=== PATIENT | female | born 1945 | race Caucasian/White ===

== ENCOUNTER 2022-11-30 16:35 | Observation (INO) | payer MEDICARE, SELFPAY ==
[2022-11-30] VITALS (20 sets, daily range): BP systolic 136–169; BP diastolic 57–76; PULSE 67–93; RESP 13–26; TEMP 36.7–37; O2SAT 97–100; BMI 21.6; BMI 22.9
--- NOTE | ~2022-11-30 | CT_ITS ---
EXAMINATION: CT brain wo con DATE: 11/30/2022 17:16 INDICATION: Syncope. TECHNIQUE: Computed tomography (CT) of the head was performed without intravenous contrast. The dose- length product was 605.33 mGy-cm. Automated exposure control and iterative reconstruction technique w ere employed. COMPARISON: CT dated 05/26/2018 FINDINGS: Chronic right lacunar infarction. Generalized atrophy. There is intracranial atherosclerosi s. There are scattered mild periventricular and subcortical white matter changes, most likely related to small vessel ischemic disease (microangiopathy). No ventriculomegaly or midline shift. Basilar ci sterns are patent. Paranasal sinuses and mastoids are pneumatized. No depressed skull fractures. No a cute intracranial hemorrhage, infarction, mass or mass effect. IMPRESSION: 1. No acute intracranial abnormality. No significant interval change. 2: Chronic right lacunar infarction. 3: Chronic age-related findings. Reviewed, dictated and finalized at location A.
--- NOTE | ~2022-11-30 | MR_ITS ---
EXAMINATION: MR brain/brain stem wo con DATE: 12/01/2022 14:33 INDICATION: Syncope. History of stroke. TECHNIQUE: Magnetic resonance imaging (MRI) of the brain and brainstem was performed without intraven ous contrast. Sequences included sagittal and axial T1-weighted SE, axial diffusion-weighted FS SE, a xial T2*-weighted GRE, axial T2-weighted FLAIR Propeller, and axial T2-weighted Propeller. Apparent d iffusion coefficient (ADC) maps were created. COMPARISON: CT dated 11/30/2022. FINDINGS: Mild generalized brain parenchymal volume loss. There are scattered mild periventricular an d subcortical white matter changes, most likely related to small vessel ischemic disease (microangiop athy). No acute infarction, mass or mass effect. No ventriculomegaly or midline shift. Structures of the posterior fossa including 7/8th cranial nerve complexes are normal. There is a small chronic righ t lacunar infarction. Paranasal sinuses are unremarkable. Orbits are symmetric without disconjugate g aze. Structures of the posterior fossa including 7/8th cranial nerve complexes are normal. Flow voids in the major intracerebral arteries are within normal limits. Midline sagittal images demonstrate a normal corpus callosum and craniovertebral junction. IMPRESSION: 1. No acute intracranial abnormality. 2: Chronic right lacunar infarction. 3: Chronic age-related findings. Reviewed, dictated and finalized at location A.
--- NOTE | ~2022-11-30 | XR_ITS ---
EXAMINATION: XR chest 1V portable 11/30/2022 17:08 INDICATION: Syncope PROCEDURE: AP portable chest COMPARISON: No prior studies for comparison. FINDINGS: The lungs are clear. The cardiomediastinal silhouette is within normal limits. There are no pleural effusions. There is no pneumothorax suspected. The lungs are hyperinflated which is cons istent with, but not diagnostic of chronic obstructive pulmonary disease. IMPRESSION: 1: NO ACUTE CARDIOPULMONARY DISEASE. Reviewed, dictated and finalized at location A.
--- NOTE | ~2022-11-30 | US_ITS ---
EXAMINATION: US carotid duplex BI DATE: 12/01/2022 08:02 INDICATION: Syncope TECHNIQUE: Grayscale, color Doppler, and pulsed Doppler images of the cervical carotid arteries were obtained. The degree of vessel stenosis is placed in one of the following categories: normal, <50%, 5 0-69%, >=70% but less than near-occlusion, near-occlusion, or total occlusion. Note that percent sten osis relative to normal distal artery lumen diameter is indirectly measured from velocity measurement s as described by John, et al. Radiology 2003; 229:340-346. COMPARISON: None. FINDINGS: RIGHT: The right common carotid artery (CCA) peak systolic velocity (PSV) is 24.1 cm/s. The right internal c arotid artery (ICA) PSV is 81.4 cm/s. The right ICA end-diastolic velocity (EDV) is 17.6 cm/s. [facility] ICA/CCA PSV ratio is 0.9. Grayscale and color Doppler images yield an estimate of 0% diameter red uction from plaque in the ICA. The external carotid artery (ECA) PSV is 98.0 cm/s. There is antegrade flow in the right vertebral artery. LEFT: The left CCA PSV is 89.2 cm/s. The left ICA PSV is 101.0 cm/s. The left ICA EDV is 21.2 cm/s. [facility] t ICA/CCA PSV ratio is 1.1. Grayscale and color Doppler images yield an estimate of 0% diameter reduc tion from plaque in the ICA. The ECA PSV is 67.3 cm/s. There is antegrade flow in the left vertebral artery. IMPRESSION: 1. No stenosis in the right internal carotid artery. 2. No stenosis in the left internal carotid artery. Reviewed, dictated and finalized at Location A. Reviewed, dictated and finalized at location A.
--- NOTE | 2022-11-30 16:47 | ECG_ITS ---
Measurements Intervals [place] Rate: 69 P: 66 AL: 153 QRS: -17 QRSD: 93 T: 38 QT: 413 QTc: 445 Interpretive Statements SINUS RHYTHM WITH SINUS ARRHYTHMIA NONSPECIFIC ST ABNORMALITY ABNORMAL ECG NO PREVIOUS ECG AVAILABLE FOR COMPARISON Electronically Signed On 12-01-2022 9:09:46 CDT by Fco Walker M.D.
--- NOTE | 2022-11-30 16:58 | ED.SYNCOPE ---
HPI - Syncope General Chief Complaint: Syncope Stated Complaint: several syncopal events Source: patient, EMS and RN notes reviewed Mode of arrival: EMS Limitations: no limitations History of Present Illness HPI narrative: This is a 77 year old female who presents for evaluation of multiple syncopal episodes. PAtient states she was sitting when developed nausea, urge to have bowel movement, felt cold and dizzy. She states she woke up the scare look on her family's face since she had passed out. EMS was called and EMS reports they witnessed 2 syncopal episodes. They report patient was sitting on stretcher when patient became unresponsive for 15 seconds, body tensed up and they witnessed her heart rate drop down to 40. This happened twice. Patient denies chest pain, shortness of breath, heart palpitations, tongue bitting. She states she has had 5 to 6 episodes of syncopal episodes in her lifetime. Her last episode was 7 years ago but she did not seek medical attention at that time. Patient did not want to come to hospital today. She has not seem doctor in 5 years. She drinks 2-3 beers a day. She denies history of alcohol withdrawal Related Data Allergies Allergy/AdvReac Type Severity Reaction Status Date / Time tetracycline Allergy Unknown Unknown Verified 11/30/22 17:39 No Known Allergies Allergy Unverified 05/26/18 12:19 Review of Systems Constitutional: Constitutional: Denies weakness Cardiovascular: Cardiovascular: Denies syncope, Denies rapid heart rate, Denies irregular heart rhythm, Denies leg edema and Denies dyspnea Respiratory: Respiratory: Denies chest congestion, Denies hemoptysis, Denies excessive phlegm production and Denies dyspnea Gastrointestinal: Gastrointestinal: Denies abdominal pain, Denies hematochezia, Denies diarrhea, Reports nausea and Reports vomiting Genitourinary: Genitourinary: Denies hematuria and Denies dysuria Musculoskeletal: Musculoskeletal: Denies joint swelling, Denies loss of height and Denies muscle weakness Neurologic: Reports syncope, Denies focal weakness and Denies weakness PMFSH Past Medical History Medical History Syncope Tobacco use Surgical History Surgical History History of section Family History Family History Sibling Family history of heart disease in male family member before age 55 Social History Social History (Updated 11/30/22 @ 20:26 by Madisyn Euceda PA-C) Social History: Surrogate medical decision maker: Wang Yu, spouse. Code status: Full code. Smoking packs per day: 0.5 Smoking cigarettes per day: 10.0 Smoking status: Current every day smoker Alcohol intake: current Alcohol use details: 3 beers per day. Additional living arrangements comments: The patient lives with her in [place]. Additional occupation/education comments: Retired. Exam Narrative: GENERAL: Well-appearing, well-nourished, and in no acute distress. HEAD: Normocephalic, atraumatic EYES: PERRLA and EOMI, conjunctiva clear without discharge THROAT:Mucous membranes moist, Oropharynx normal without erythema, exudate, peritonsillar swelling or fluctuance NECK: Supple, without lymphadenopathy or mass RESPIRATORY: No respiratory distress, Airway patent, Respirations non-labored, Clear to auscultation without rales, rhonchi or wheeze HEART: Regular rate and rhythm. No murmur heard. Normal peripheral pulses. ABDOMEN: Soft, nontender, nondistended, normal active bowel sounds. No masses. No rebound or guarding, No organomegaly. EXTREMITIES: No edema, normal strength with full range of motion. SKIN: Warm, dry, normal color without rash NEURO: Alert and oriented x3. CN 2-12 grossly intact. No focal deficits. PSYCH: Normal mood and affect. Course Reevaluation(s) Reevaluation #1: I discussed with patient evaluation. I
[2022-11-30] MEDS: SODIUM CHLORIDE 0.9% IV 1,000 ML 999 ML IV CONT (17:40)
[2022-11-30 17:54] LABS: Basophils Percent Auto 0.2 % (0.2-1.2); Eosinophils Percent Auto 0.1 % (0-4.4); Hematocrit 38.2 % (37.0-47.0); Hemoglobin 12.9 g/dL (12.0-15.0); Immature Granulocyte Absolute 0.04 K/mm3 (0.00-0.031); Immature Granulocyte Percent A 0.4 % (0-0.5); Lymphocytes Absolute Auto 1.19 K/mm3 (0.9-3.2); Lymphocytes Percent Auto 12.6 % (18.3-44.2); Mean Corpuscular HGB Conc 33.8 g/dl (32-36); Mean Corpuscular Hemoglobin 33.6 pg (26-34); Mean Corpuscular Volume 99.5 fl (80-100); Mean Platelet Volume 11.2 fl (7.4-10.4); Monocytes Absolute Auto 0.7 K/mm3 (0.1-0.6); Monocytes Percent Auto 7.1 % (2.6-8.5); Neutrophils Absolute Auto 7.5 K/mm3 (1.3-6.7); Neutrophils Percent Auto 79.6 % (45.5-73.1); Platelet Count Result 217 k/mm3 (150-375); Red Blood Count 3.84 M/mm3 (4.2-5.4); Red Cell Distribution Width 12.4 % (11.5-14.5); White Blood Count 9.4 K/mm3 (4.5-10.0)
[2022-11-30 18:11] LABS: Alanine Aminotransferase 23 U/L (6-35); Alkaline Phosphatase 65 U/L (38-126); Anion Gap 6 mmol/L (8-16); Aspartate Amino Transferase 35 U/L (14-36); Bilirubin,Total 0.6 mg/dL (0.2-1.3); Blood Urea Nitrogen 10 mg/dL (7-17); Carbon Dioxide 26 mmol/L (22-30); Chloride 103 mmol/L (98-107); Estimated CRCL calculation 50 ml/min; Estimated Glomerular Filt Rate > 60; Glucose 142 mg/dL (65-110); Lactic Acid Reflex 2.6 mmol/L (0.7-2.0); Magnesium 1.8 mg/dL (1.6-2.3); Prothrombin Time 14.2 Seconds (11.1-14.7); Sodium 135 mmol/L (137-145)
[2022-11-30 18:12] LABS: Ethanol < 10 mg/dL (<10)
[2022-11-30 18:19] LABS: NT Pro B Type Natriuretic Pept 373 pg/mL (19.9-100); Troponin I < 0.012 ng/mL (0.000-0.034)
[2022-11-30 18:22] LABS: D Dimer 0.47 ug/mL (<0.48)
--- NOTE | 2022-11-30 19:01 | PM.IMHP ---
H&P: HPI History of Present Illness Date/Time: 11/30/22 19:05 Chief Complaint: Syncope. Narrative: This is a 77-year-old female smoker without significant medical history who presented to the emergency department via EMS for evaluation after syncopal episode. The patient provides the following history and her provides additional information with the patient's permission. She felt fine when she got up this morning. Not long prior to arrival she was simply sitting down when she felt the urge to use the restroom. She reports having a normal bowel movement and she returned to the couch. Greater than 15 minutes later she began feeling weak, lightheaded, and dizzy with associated chills and nausea. reports that her head fell forward and she was unresponsive for approximately 10 seconds. He called 911 and when she came to she told him that she did not want to come to the hospital as she has had similar episodes in the past though not for 5 years or more. EMS was already in route to her home and she had 2 similar episodes witnessed by EMS. They did not notice any seizure-like activity but they did report that she tensed up, became bradycardic into the 40s, and she was unresponsive for upwards of 15 seconds. Vital signs have been stable since arrival to the ED. She has not had any recurrent symptoms. Brain CT showed no acute findings but did show a chronic right-sided lacunar infarct, unknown to the patient. EKG showed a sinus rhythm with normal UT interval, ventricular rate of 69, and no acute ST segment depressions or elevations. Chest x-ray showed no acute cardiopulmonary disease. At the time my evaluation she feels fine and has no complaints. She denies fever, recent cold and flu symptoms, chest and pleuritic pain, palpitations, shortness of breath, and vomiting. Review of Systems Review of Systems: Twelve systems were reviewed and are negative except for as per HPI. [facility] Past Medical History Medical History Syncope Tobacco use Surgical History Surgical History History of section Family History Family History Sibling Family history of heart disease in male family member before age 55 Social History Social History (Updated 11/30/22 @ 20:26 by Madisyn Euceda PA-C) Social History: Surrogate medical decision maker: Wang Yu, spouse. Code status: Full code. Smoking packs per day: 0.5 Smoking cigarettes per day: 10.0 Smoking status: Current every day smoker Alcohol intake: current Alcohol use details: 3 beers per day. Additional living arrangements comments: The patient lives with her in [place]. Additional occupation/education comments: Retired. Meds Home Medications and Allergies Allergies Allergy/AdvReac Type Severity Reaction Status Date / Time tetracycline Allergy Unknown Unknown Verified 11/30/22 17:39 No Known Allergies Allergy Unverified 05/26/18 12:19 Vital Signs Vital Signs - 24 hr 11/30/22 16:37 11/30/22 16:48 11/30/22 18:10 Temperature 98.0 F Pulse Rate 73 75 71 Respiratory Rate 19 Blood Pressure 155/60 H 149/65 H Pulse Oximetry 99 11/30/22 18:14 11/30/22 18:15 Temperature Pulse Rate 77 82 Respiratory Rate Blood Pressure 163/67 H 169/70 H Pulse Oximetry Exam Narrative: General: A well-developed female sitting up in bed in no acute distress. Weight: 60.8 kg. BMI: 21.6. HEENT: Wearing corrective lenses. PERRL, EOMI. Sclera anicteric. Oral mucosa moist. Neck: Supple. No JVD or bruits. Respiratory: Lungs are clear to auscultation bilaterally. Cardiovascular: Regular rate and rhythm with S1-S2. Gastrointestinal: Abdomen is soft, nontender, and nondistended with positive bowel sounds. Skin: Warm and dry. No rash or lesions on limited exam. Extremities: No cyanosis, clubbing, or edema. Radial pulses
[2022-11-30 20:33] LABS: Glucose Point of Care 116 mg/dl (65-105)
[2022-11-30] MEDS: SODIUM CHLORIDE 0.9% IV 1,000 ML 125 ML IV CONT (20:50)
[2022-11-30 20:52] LABS: Reflex Lactic Acid Yes or No Add Lactic
[2022-11-30 21:54] LABS: Lactic Acid 2.3 mmol/L (0.7-2.0)
[2022-11-30 23:41] LABS: Appearance Urine Clear (Clear); Bacteria Urine 4+ /hpf; Bilirubin Urine Negative (Negative); Blood Urine Negative (Negative); Color Urine Yellow (Yellow); Glucose Urine UA Negative (Negative); Ketones Urine Negative (Negative); Leukocyte Esterase Ur Trace LEU/UL (Negative); Nitrate Urine Positive (Negative); Non Pathogenic Casts 0-2; Protein Urine Negative (Negative); RBC Urine 0-2 /hpf (0-2); Specific Grav Ur 1.009 (1.001-1.035); Squamous Epithelial Cell Urine None seen /hpf (Few); Urobilinogen Urine 0.2 mg/dL (<2.0)
[2022-11-30 23:44] LABS: Add Urine Microscopic? YES
[2022-11-30 23:54] LABS: Amphetamine Screen Urine Negative (Negative); Barbiturate Screen Urine Negative (Negative); Benzodiazepines Screen Urine Negative (Negative); Cannabinoid Screen Urine Positive (Negative); Cocaine Screen Urine Negative (Negative); Methadone Screen Urine Negative (Negative); Opiate Screen Urine Negative (Negative); Phencyclidine Screen Urine Negative (Negative)
[2022-12-01] VITALS (15 sets, daily range): BP systolic 144–172; BP diastolic 54–77; PULSE 56–81; RESP 16–20; TEMP 36.6–36.9; O2SAT 94–99
[2022-12-01 05:13] LABS: Anion Gap 2 mmol/L (8-16); Blood Urea Nitrogen 6 mg/dL (7-17); Calcium 8.2 mg/dL (8.4-10.2); Carbon Dioxide 28 mmol/L (22-30); Chloride 106 mmol/L (98-107); Cholesterol 172 mg/dL (0-200); Estimated CRCL calculation 64 ml/min; Estimated Glomerular Filt Rate > 60; Glucose 90 mg/dL (65-110); HDL Direct 59 mg/dL; Magnesium 1.7 mg/dL (1.6-2.3); Potassium 4.1 mmol/L (3.4-5.0); Sodium 136 mmol/L (137-145); Triglycerides 131 mg/dL (<150)
[2022-12-01 05:30] LABS: LDL Cholesterol Direct 92 mg/dL
[2022-12-01 05:50] LABS: Hemoglobin A1C 4.8 % (<5.7)
--- NOTE | 2022-12-01 11:23 | PM.IMPN ---
Progress Note: A&P Assessment and Plan (1) Syncope: Code(s): R55 - Syncope and collapse Status: Acute Assessment and Plan: Patient presented to the emergency department via EMS from home for evaluation of syncope. Possible vasovagal syncope however she is adamant that she did not lose consciousness or have any prodromal symptoms for 15 minutes or more after having an unremarkable bowel movement. Transthoracic echo with bubble study pending US carotids completed and pending CT head with chronic right lacunar infarct; no acute process noted. EKG sinus arrhythmia with nonspecific ST changes. Telemetry sinus arrhythmia without ectopy Check MRI brain given evidence of old stroke on CT. Monitor orthostatic vitals. No h/o seizures. (2) Elevated blood pressure reading: Code(s): R03.0 - Elevated blood-pressure reading, without diagnosis of hypertension Status: Acute Assessment and Plan: Patient likely has untreated hypertension given evidence of prior stroke, smoking habits, and age; however, she does not go to the doctor regularly or check her BP at home. When discussed she states that her blood pressure is probably high because she's in the hospital and wants to go home. Recommended starting antihypertensives and patient did not want to do this at this time. She was counseled on risks for AL and further strokes. PRN hydralazine IV for SBP>185 or DBP>110 (3) Hyperglycemia: Code(s): R73.9 - Hyperglycemia, unspecified Status: Inactive Assessment and Plan: Blood sugar 142 at 1737. This is unlikely a fasting level and not elevated for random glucose level to suggest diabetes. A1c 4.8%. No further evaluation or intervention needed. (4) Old lacunar stroke without late effect: Code(s): Z86.73 - Personal history of transient ischemic attack (TIA), and cerebral infarction without residual deficits Status: Chronic Assessment and Plan: CT head shows chronic right lacunar infarct. Patient denies known history of stroke. No focal deficits. patient with syncope on admission. Check MRI brain to rule out acute stroke. BP elevated 144/58 to 172/77. She is not agreeable to taking antihypertensive at this time despite long discussion of risks for uncontrolled hypertension. She was counseled to find PCP and check BP at home. She is agreeable to starting baby aspirin 81 mg daily. LDL 92, HDL 59, triglycerides 131. Give prior stroke recommended LDL<70, however, patient is not agreeable to starting statin medication at this time. Saw Handle Assembler to decrease alcohol intake to no more than 7 drinks/week and quit smoking. (5) Tobacco use: Code(s): Z72.0 - Tobacco use Status: Chronic Assessment and Plan: As above. Plan CODE STATUS: FULL CODE Discharge disposition: from home. Discharge when imaging completed and hemodynamically stable. Time Spent With Patient Time with patient: 25 - 35 minutes Subjective Date/time seen: 12/01/22 11:23 Interval history: Patient denies GRISSOM, vision changes, slurred speech, word finding, disorientation, dizziness, gait changes, facial droop or paresthesia, unilateral extremity weakness or paresthesia, chest pain, SOB, fever, chills, urinary frequency/urgency/hesitancy or hematuria. She was incontinent of stool during her syncopal episode. No tongue injury. Review of Systems Review of Systems: All systems reviewed & are unremarkable except as noted in HPI and below Exam Narrative: General: No acute distress. Older adult female lying in bed. Non-toxic appearing. Neuro/Psych: Awake, alert and oriented x4 with clear, non-pressured speech. Neutral mood and affect. Cranial nerves 2-12 intact. No focal sensory or motor deficits. No facial asymmetry or tongue deviation. No pronator drift or drift BLE. Intact finger to nose and heel to singh. Skin: Skin fair, warm, dry and intact without rashes or l
[2022-12-01] MEDS: LORazepam INJ (*CRX) 2 MG/ML VIAL 1 MG IV PUSH (13:47)
[2022-12-01 20:26] LABS: Glucose Point of Care 106 mg/dl (65-105)
[2022-12-02] VITALS (7 sets, daily range): BP systolic 146–160; BP diastolic 57–82; PULSE 53–67; RESP 16; TEMP 36.4; O2SAT 94
--- NOTE | 2022-12-02 | ECHO_ITS ---
Patient Info Name: Linette Yu Age: 77 years : 1945 Gender: Female Ht: 66 in Wt: 134 lbs BSA: 1.68 m2 HR: 64 bpm BP: 148 / 69 mmHg Heart Rhythm: Sinus Rhythm Technical Quality: Fair Exam Date: 12/02/2022 12:41 PM Exam Location: [facility] Patient Status: Outpatient Admit Date: 11/30/2022 Staff Ordering Physician: Madisyn Euceda PA-C Sand Digger: Leigh Ann Sands RDCS Attending Provider: Miguel Blank MD Referring Physician: Ok HAYS; Exam Type: CA echo doppler w bubble study Study Info Indications - old cva on brain ct R55 - Syncope and collapse Complete two-dimensional, color flow and Doppler transthoracic echocardiogram is performed with agitated saline. Contrast/Agitated Saline Contrast/Ag. Saline: Agitated Saline Amount: 20.00 ml Administered By: Margo Olguin RDCS Existing IV Access: Yes IV Access Condition: patent with no signs of infiltration Summary 1. Normal left ventricular size, systolic function with grade 1 diastolic noncompliance. 2. No valvular abnormalities. 3. Agitated saline contrast injection demonstrates no intracardiac shunt. Left Ventricle Left ventricular chamber dimension is normal. Left ventricular systolic function is normal, estimated at 65-70%. The left ventricular diastolic function is grade I diastolic dysfunction. Right Ventricle Right ventricular chamber dimension is normal. Left Atria Left atrial chamber dimension is normal. Right Atria Right atrial chamber dimension is normal. Atrial Septum Intact interatrial septum visualized by agitated saline imaging. Aortic Valve The aortic valve is normal. Pulmonic Valve The pulmonic valve is normal. Mitral Valve The mitral valve has normal leaflets. Tricuspid Valve The tricuspid valve leaflets are normal. Pericardium/Pleural The pericardium appears normal. Aorta The aortic root size at the sinus of Valsalva is normal. Left Ventricular Outflow Tract Name Value Normal LVOT 2D LVOT Diameter 2.0 cm LVOT Doppler LVOT Peak Gradient 4 mmHg LVOT Mean Gradient 2 mmHg LVOT VTI 20 cm LVOT VTI/AV VTI Ratio 0.7 LVOT Stroke Volume 66 ml LVOT CO 4.5 l/min LVOT CI 2.6 l/min/m2 Pulmonic Valve Name Value Normal RVOT Doppler RVOT Peak Gradient 1 mmHg PV Doppler PV Peak Gradient 2 mmHg Mitral Valve Name Value Normal MV Doppler
[2022-12-02 06:10] LABS: Basophils Percent Auto 0.3 % (0.2-1.2); Eosinophils Absolute Auto 0.1 K/mm3 (0-0.3); Eosinophils Percent Auto 1.8 % (0-4.4); Hematocrit 35.9 % (37.0-47.0); Hemoglobin 12.2 g/dL (12.0-15.0); Immature Granulocyte Absolute 0.02 K/mm3 (0.00-0.031); Immature Granulocyte Percent A 0.3 % (0-0.5); Lymphocytes Absolute Auto 2.39 K/mm3 (0.9-3.2); Lymphocytes Percent Auto 39.1 % (18.3-44.2); Mean Corpuscular Hemoglobin 33.4 pg (26-34); Mean Corpuscular Volume 98.4 fl (80-100); Mean Platelet Volume 11.2 fl (7.4-10.4); Monocytes Absolute Auto 0.6 K/mm3 (0.1-0.6); Monocytes Percent Auto 9.8 % (2.6-8.5); Neutrophils Percent Auto 48.7 % (45.5-73.1); Platelet Count Result 183 k/mm3 (150-375); Red Blood Count 3.65 M/mm3 (4.2-5.4); Red Cell Distribution Width 11.9 % (11.5-14.5); White Blood Count 6.1 K/mm3 (4.5-10.0)
[2022-12-02] MEDS: ASPIRIN 81 MG ENTERIC TABLET PO (08:50)
--- NOTE | 2022-12-02 13:10 | PCCCNOTE ---
On 12/02/22, the student, [Jade Arroyo ], provided care and [facility] on this patient. I have reviewed the student's documentation and agree with the findings.
--- NOTE | 2022-12-02 16:39 | PM.DS ---
DS: Admitting Diagnosis Discharge Date 12/02/2022 Admitting Diagnosis Syncope Elevated blood pressure Old lacunar stroke Tobacco dependence DS: Discharge Diagnosis Discharge Diagnosis (1) Syncope: Qualifiers: Syncope type: unspecified Qualified Code(s): R55 - Syncope and collapse Code(s): R55 - Syncope and collapse Status: Acute Assessment and Plan: Patient presented to the emergency department via EMS from home for evaluation of syncope. Possible vasovagal syncope however she is adamant that she did not lose consciousness or have any prodromal symptoms for 15 minutes or more after having an unremarkable bowel movement. Transthoracic echo with bubble study showed grade 1 diastolic dysfunction, but normal LV systolic function, EF 65-70%, no significant valvular disease or PFO. US carotids without abnormality. CT head with chronic right lacunar infarct; no acute process noted. EKG sinus arrhythmia with nonspecific ST changes. Telemetry sinus arrhythmia without ectopy Check MRI brain without acute stroke. orthostatic vitals negative. Patient afebrile without s/s acute infection. UA suggests infection but patient is without systemic or urinary symptoms. No h/o seizures. (2) Hypertension: Code(s): I10 - Essential (primary) hypertension Status: Acute Assessment and Plan: Patient likely has untreated hypertension given evidence of prior stroke, smoking habits, and age; however, she does not go to the doctor regularly or check her BP at home. When discussed she states that her blood pressure is probably high because she's in the hospital and wants to go home. Recommended starting antihypertensives and patient did not want to do this at this time. She was counseled on risks for HI and further strokes. PRN hydralazine IV for SBP>185 or DBP>110 available. Patient had persistently elevated BP and given CT evidence of prior stroke, she was agreeable to starting PO lisinopril 10 mg daily. She was counseled to check her BP at home and record for follow up. (3) Hyperglycemia: Code(s): R73.9 - Hyperglycemia, unspecified Status: Inactive Assessment and Plan: Blood sugar 142 at 1737. This is unlikely a fasting level and not elevated for random glucose level to suggest diabetes. A1c 4.8%. No further evaluation or intervention needed. (4) Old lacunar stroke without late effect: Code(s): Z86.73 - Personal history of transient ischemic attack (TIA), and cerebral infarction without residual deficits Status: Chronic Assessment and Plan: CT head shows chronic right lacunar infarct. Patient denies known history of stroke. No focal deficits. patient with syncope on admission. Check MRI brain to rule out acute stroke. BP elevated 144/58 to 172/77. She is not agreeable to taking antihypertensive at this time despite long discussion of risks for uncontrolled hypertension. She was counseled to find PCP and check BP at home. Patient started on lisinopril 10 mg 12/02/22 She is agreeable to starting baby aspirin 81 mg daily. LDL 92, HDL 59, triglycerides 131. Give prior stroke recommended LDL<70, however, patient is not agreeable to starting statin medication at this time. Gynecologist to decrease alcohol intake to no more than 7 drinks/week and quit smoking. (5) Tobacco use: Code(s): Z72.0 - Tobacco use Status: Chronic Assessment and Plan: Counseled to quit smoking. (6) Asymptomatic bacteriuria: Code(s): R82.71 - Bacteriuria Status: Acute Assessment and Plan: UA positive nitrates, trace leukocytes, 6-10 WBC, 4+ bacteria. No dysuria, urinary urgency, hesitancy, frequency, hematuria or flank pain. No leukocytosis or fever. Antibiotics were not started and she was counseled on s/s infection. DS: Summary Hospital Course Reason for hospitalization: syncope Hospital Course: [place]
== END 2022-12-02 17:15 | disposition home or self-care (01) ==
LOC: ANHED 16:58 → ANH2MED 21:06
PROVIDERS: Nurse Practitioner Family; Physician Assistant; Admitting Provider Chiropractor; Emergency Provider General Practice; PCP Internal Medicine; Visit Provider Student in an Organized Health Care Education/Training Program
DX: I11.9 Hypertensive heart disease without heart failure (principal); R55 Syncope and collapse; R03.0 Elevated blood-pressure reading, without diagnosis of hypertension; R73.9 Hyperglycemia, unspecified; N39.0 Urinary tract infection, site not specified; B96.20 Unspecified Escherichia coli [E. coli] as the cause of diseases classified elsewhere; R94.31 Abnormal electrocardiogram [ECG] [EKG]; R90.82 White matter disease, unspecified; R15.9 Full incontinence of feces; F17.210 Nicotine dependence, cigarettes, uncomplicated; F10.90 Alcohol use, unspecified, uncomplicated; Y90.0 Blood alcohol level of less than 20 mg/100 ml; Z86.73 Personal history of transient ischemic attack (TIA), and cerebral infarction without residual deficits; Z82.49 Family history of ischemic heart disease and other diseases of the circulatory system; Z79.82 Long term (current) use of aspirin; Z79.899 Other long term (current) drug therapy
CPT/HCPCS: 36415; 70450; 70551; 71045; 80048; 80053; 80061; 80307; 81001; 82948; 83036; 83605; 83735; 83880; 84443; 84484; 85025; 85380; 85610; 85730; 87077; 87086; 87186; 93005; 93306; 93880; 96361; 96374; 96375; 99285; A9270; G0378; J2060; J7030